=== PATIENT | female | born 1955 | race Caucasian/White ===

== ENCOUNTER 2022-10-16 07:40 | Inpatient (IN) ==
[2022-10-16] MEDS ORDERED: ACETAMINOPHEN 1,000 MG/100 ML VIAL IV STA (08:44)
[2022-10-16] MEDS ORDERED: MoRPHine SULFATE 2 MG/ML CARP IV STA (08:44)
[2022-10-16] MEDS ORDERED: SODIUM CHLORIDE 0.9% 1000ML 1,000 ML IV STA (08:44)
--- NOTE | 2022-10-16 08:49 | Emergency Department Note ---
Impression & Plan RUQ abdominal pain, Acute cholecystitis, Vomiting ED Provider Note NAME: ASHLIE VASQUEZ AGE: 67 SEX: F : 1955 ARRIVES VIA: Ambulance INFORMANT: [Patient] ED PROVIDER(S): [Jose G Lim MD] CHIEF COMPLAINT: GI assessment HISTORY OF PRESENT ILLNESS: The patient is a 67-year-old female who presents to the ER with epigastric abdominal pain and vomiting. She had an episode 2 days ago that resolved spontaneously. She felt fine yesterday. Last night, she had a lot to eat at the [employer]. About 4-1/2 hours ago she woke up with back pain and epigastric pain and began vomiting. This time, the symptoms are not resolving spontaneously. In route to the hospital, she was given IV Toradol, IV morphine and IV Zofran with some relief--although, she still has pain and would rate the pain as a 6/10. The pain had been an 8. The patient has no history of abdominal surgery. She does have gastritis for which she takes omeprazole. The patient had an episode similar to today's episode about a year and a half ago. She went to a local ER and was given a GI cocktail as well as Zofran, her symptoms resolved. PMHx/PSHx: See Below SOCIAL HISTORY: See Below. PHYSICAL EXAM: GENERAL: Patient is in no acute distress. HEENT: No acute trauma, normocephalic atraumatic, mucous membranes moist, no nasal congestion. NECK: No stridor, no adenopathy, no meningismus, trachea is midline. LUNGS: Clear to auscultation bilaterally, no wheeze, no rhonchi, breath sounds equal. HEART: Without murmurs gallops or rubs, regular rate and rhythm. ABDOMEN: Soft, moderately tender in the epigastrium and right upper quadrant, no distention or peritonitis. EXTREMITIES: No cyanosis or edema, full range of motion of all the joints without pain or difficulty, no signs for acute trauma. NEUROLOGIC: Oriented x 3, no acute motor or sensory deficits, no focal weakness. SKIN: No rash, no jaundice, no diaphoresis. DIFFERENTIAL DIAGNOSIS: Biliary colic, acute cholecystitis, pancreatitis, cardiac ischemia, diverticulitis, reflux or gastritis, ulcer, among others. EMERGENCY DEPARTMENT COURSE/PROCEDURES: Prior/Outside records reviewed: EMS notes. ECG per my interpretation: Indication was abdominal pain. The ECG shows a sinus bradycardia with a rate of 59. There is some baseline artifact. There is no ST elevation, no PVCs. The QTc is 439. Continuous Cardiac Monitoring per my interpretation: An order was placed for continuous cardiac monitoring. The monitor shows a rate of 62 with normal sinus rhythm. MEDICAL DECISION MAKING: There is no leukocytosis or concerning anemia. There is a normal platelet count. Potassium slightly low at 3.3. No renal failure. No concerning liver enzyme elevation. No evidence for pancreatitis. ECG shows sinus bradycardia, no ischemia. Cardiac enzyme testing x1 is not consistent with acute cardiac injury. Urinalysis does not show infection. Chest film per my review does not show mediastinal widening, free air or pneumonia. Abdominal and pelvis CT shows evidence for acute cholecystitis with a potential stone caught in the cystic duct. There was no elevation to the common bile duct. Patient had received morphine, Toradol and Zofran prior to arrival. She was given IV saline, 1 L. She received IV Zosyn as antibiotic coverage. She was given IV Zofran, IV morphine. She received IV Tylenol. The patient does feel improved but is still having discomfort in the right upper quadrant. I did speak with general surgery, patient was seen in the ED by general surgery and will be taken to the OR by Dr. Mcgowan. The patient is aware of her findings, case management has been involved. DISPOSITION: The patient's presentation and findings warrant surgical intervention. Past Med/Surg History Medical History GERD (gastroesophageal reflux disease) Hypertension Social History Smoking Status: Never smoker Preferred Language: [place] Feels Safe at Home: Yes Allergies Allergies Allergy/AdvReac Type Severity Reaction Status Date / Time No Known Allergies Allergy Unverified 10/16/22 09:29 Home Meds Home Medications Medication Instructions Recorded Confirmed cranberry 1 tab PO DAILY 10/16/22 10/16/22 multivitamin 1 tab PO DAILY 10/16/22 10/16/22 omega-3 fatty acids 1,000 mg PO DAILY 10/16/22 10/16/22 omeprazole 20 mg capsule,delayed 20 mg PO DAILY 10/16/22 10/16/22 release potassium chloride 10 mEq 10 meq PO BID 10/16/22 10/16/22 tablet,extended release(part/cryst) triamterene 37.5 1 cap PO DAILY 10/16/22 10/16/22 mg-hydrochlorothiazide 25 mg capsule Results & Data (ED) Vital Signs Vital Signs - 24 hr 10/16/22 07:47 10/16/22 07:40 10/16/22 08:44 Temperature 36.7 C Temperature Source Oral Pulse Rate 62 60 62 Pulse Rate [Apical] Pulse Rate [Left Finger] Pulse Rate from SpO2 Sensor Pulse Rhythm Regular Pulse Rhythm [Apical] Pulse Rhythm [Left Finger] Pulse Strength [Apical] Pulse Strength [Left Finger] Respiratory Rate 20 20 Respiratory Effort / Characteristics Non-Labored Respiratory Depth Normal Respiratory Pattern Regular Blood Pressure 183/82 H Blood Pressure [Right Arm] Blood Pressure Mean 115 Blood Pressure Mean [Right Arm] Blood Pressure Position [Right Arm] Pulse Oximetry 98 98 Oxygen Delivery Method Room Air Room Air Oxygen Flow Rate Sepsis Recent Fever Within 48 Hours No Sepsis New/Unexplained Change in Mental Status N/A Sepsis Action Taken by Nursing No Action Required 10/16/22 07:48 10/16/22 08:00 10/16/22 09:00 Temperature Temperature Source Pulse Rate 66 66 65 Pulse Rate [Apical] Pulse Rate [Left Finger] Pulse Rate from SpO2 Sensor 63 66 64 Pulse Rhythm Pulse Rhythm [Apical] Pulse Rhythm [Left Finger] Pulse Strength [Apical] Pulse Strength [Left Finger] Respiratory Rate 19 14 20 Respiratory Effort / Characteristics Respiratory Depth Respiratory Pattern Blood Pressure 183/82 H 190/96 H 189/106 H Blood Pressure [Right Arm] Blood Pressure Mean 115 127 133 Blood Pressure Mean [Right Arm] Blood Pressure Position [Right Arm] Pulse Oximetry 96 94 99 Oxygen Delivery Method Oxygen Flow Rate Sepsis Recent Fever Within 48 Hours Sepsis New/Unexplained Change in Mental Status Sepsis Action Taken by Nursing 10/16/22 10:00 10/16/22 11:00 10/16/22 12:27 Temperature Temperature Source Pulse Rate 67 75 68 Pulse Rate [Apical] Pulse Rate [Left Finger] Pulse Rate from SpO2 Sensor 69 Pulse Rhythm Pulse Rhythm [Apical] Pulse Rhythm [Left Finger] Pulse Strength [Apical] Pulse Strength [Left Finger] Respiratory Rate 14 20 Respiratory Effort / Characteristics Respiratory Depth Respiratory Pattern Blood Pressure 182/96 H 174/117 H Blood Pressure [Right Arm] Blood Pressure Mean 124 136 Blood Pressure Mean [Right Arm] Blood Pressure Position [Right Arm] Pulse Oximetry 100 96 Oxygen Delivery Method Room Air Oxygen Flow Rate Sepsis Recent Fever Within 48 Hours Sepsis New/Unexplained Change in Mental Status Sepsis Action Taken by Nursing 10/16/22 12:00 10/16/22 12:00 10/16/22 13:05 Temperature Temperature Source Pulse Rate 65 Pulse Rate [Apical] Pulse Rate [Left Finger] Pulse Rate from SpO2 Sensor 65 Pulse Rhythm Pulse Rhythm [Apical] Pulse Rhythm [Left Finger] Pulse Strength [Apical] Pulse Strength [Left Finger] Respiratory Rate 18 Respiratory Effort / Characteristics Respiratory Depth Respiratory Pattern Blood Pressure 163/87 H Blood Pressure [Right Arm] Blood Pressure Mean 127 Blood Pressure Mean [Right Arm] Blood Pressure Position [Right Arm] Pulse Oximetry 93 Oxygen Delivery Method Room Air Oxygen Flow Rate Sepsis Recent Fever Within 48 Hours Sepsis New/Unexplained Change in Mental Status Sepsis Action Taken by Nursing 10/16/22 13:06 10/16/22 14:35 10/16/22 14:45 Temperature 36.8 C 36.2 C L Temperature Source Oral Temporal Artery Scan Pulse Rate Pulse Rate [Apical] 75 70 Pulse Rate [Left Finger] 70 Pulse Rate from SpO2 Sensor Pulse Rhythm Pulse Rhythm [Apical] Regular Regular Pulse Rhythm [Left Finger] Regular Pulse Strength [Apical] Normal Normal Pulse Strength [Left Finger] Normal Respiratory Rate 18 16 18 Respiratory Effort / Characteristics Non-Labored Spontaneous Non-Labored Spontaneous Non-Labored Spontaneous Respiratory Depth Normal Normal Normal Respiratory Pattern Regular Regular Regular Blood Pressure Blood Pressure [Right Arm] 192/93 H 159/62 H 158/76 H Blood Pressure Mean Blood Pressure Mean [Right Arm] 126 94 103 Blood Pressure Position [Right Arm] Sitting Semi-fowlers Semi-fowlers Pulse Oximetry 96 95 98 Oxygen Delivery Method Room Air Oxymask Oxymask Oxygen Flow Rate 6 4 Sepsis Recent Fever Within 48 Hours Sepsis New/Unexplained Change in Mental Status Sepsis Action Taken by Nursing 10/16/22 14:55 10/16/22 15:05 Temperature Temperature Source Pulse Rate Pulse Rate [Apical] 64 68 Pulse Rate [Left Finger] Pulse Rate from SpO2 Sensor Pulse Rhythm Pulse Rhythm [Apical] Regular Regular Pulse Rhythm [Left Finger] Pulse Strength [Apical] Normal Normal Pulse Strength [Left Finger] Respiratory Rate 13 20 Respiratory Effort / Characteristics Non-Labored Spontaneous Non-Labored Spontaneous Respiratory Depth Normal Normal Respiratory Pattern Regular Regular Blood Pressure Blood Pressure [Right Arm] 160/79 H 142/70 H Blood Pressure Mean Blood Pressure Mean [Right Arm] 106 94 Blood Pressure Position [Right Arm] Semi-fowlers Semi-fowlers Pulse Oximetry 97 95 Oxygen Delivery Method Oxymask Room Air Oxygen Flow Rate 4 Sepsis Recent Fever Within 48 Hours Sepsis New/Unexplained Change in Mental Status Sepsis Action Taken by Group Home Medications Current Medication List: was personally reviewed by me Laboratory Data Attestation: I reviewed the patient's lab results. 10/16/22 07:50 10/16/22 07:50 Lab Results 10/16/22 10/16/22 10/16/22 Range/Units 07:50 07:50 10:24 WBC 6.87 (4.8-10.8) K/ul RBC 4.77 (4.20-5.40) M/uL Hgb 14.2 (12.0-16.0) g/dl Hct 40.1 (37.0-47.0) % MCV 84.1 (80.0-100.0) fL MCH 29.8 (25.0-34.0) pg MCHC 35.4 (32.0-36.0) g/dL RDW Std Deviation 39.1 (36.4-46.3) fL RDW Coeff of Bryce 12.9 (11.5-14.5) % Plt Count 223 (130-400) K/uL MPV 8.4 L (9.4-12.4) fL Immature Gran % (Auto) 0.7 % Neut % (Auto) 78.8 % Lymph % (Auto) 14.8 % [place] % (Auto) 4.8 % Eos % (Auto) 0.6 % Baso % (Auto) 0.3 % Neut # (Auto) 5.41 (1.40-6.50) K/uL Lymph # (Auto) 1.02 L (1.20-3.40) K/uL [place] # (Auto) 0.33 (0.11-0.59) K/uL Eos # (Auto) 0.04 (0.00-0.50) K/uL Baso # (Auto) 0.02 (0.00-0.20) K/uL Immature Gran # (Auto) 0.05 (0.01-0.20) K/uL Sodium 140 (136-145) mmol/L Potassium 3.3 L (3.5-5.1) mmol/L Chloride 105 (98-107) mmol/L Carbon Dioxide 28 (21-32) mmol/L Anion Gap 7 (3-11) BUN 21 (6-23) mg/dl Creatinine 0.72 (0.6-1.2) mg/dl Est Cr Clr Drug Dosing 74.2 ml/min Est GFR ( Amer) 100.4 ml/min Est GFR (Non-Af Amer) 86.7 ml/min BUN/Creatinine Ratio 29.2 H (10-20) Glucose 162 H (70-99(Fasting)) mg/dl Calcium 8.9 (8.6-10.3) mg/dl Total Bilirubin 0.5 (0.2-1.0) mg/dl AST 15 (13-39) U/L ALT 11 (7-52) U/L Alkaline Phosphatase 62 (34-104) U/L Troponin I High Sens 4.8 (0-14) pg/ml Total Protein 6.4 (6.0-8.3) gm/dl Albumin 4.3 (3.4-5.0) gm/dl Globulin 2.1 L (2.5-4.0) gm/dl Albumin/Globulin Ratio 2.0 (0.9-2) Lipase 29 (11-82) U/L Urine Color Yellow Urine Appearance Clear (Clear) Urine pH 8.0 H (4.5-7.5) Ur Specific [place] 1.015 (1.000-1.030) Urine Protein Negative (Negative) Urine Glucose (UA) Trace H (Negative) Urine Ketones Negative (Negative) Urine Blood Negative (Negative) Urine Nitrite Negative (Negative) Urine Bilirubin Negative (Negative) Urine Urobilinogen Negative (Negative) Ur Leukocyte Esterase Negative (Negative) Administered Medications Discontinued Medications Bupivacaine HCl (Bupivacaine 0.5 % 5 Mg/1 Ml Mpf 30ml Vial) Confirm Administered Dose 30 ml .ROUTE .STK-MED ONE Stop: 10/16/22 12:41 Last Admin: 10/16/22 14:14 Dose: 10 ml Documented By: [facility] Sodium Chloride (Nss 1000ml) 1,000 mls @ 999 mls/hr IV .Q1H1M STA Stop: 10/16/22 09:44 Last Infusion: 10/16/22 10:10 Dose: 0 mls/hr Documented By: Admin: 10/16/22 09:00 Dose: 999 mls/hr Documented By: FAISAL Acetaminophen (Ofirmev) 1,000 mg in 100 mls @ 400 mls/hr IV NOW STA Stop: 10/16/22 08:58 Last Infusion: 10/16/22 09:20 Dose: 0 mls/hr Documented By: Admin: 10/16/22 09:01 Dose: 400 mls/hr Documented By: FAISAL Piperacillin Sod/Tazobactam Sod (Zosyn) 4.5 gm in 120 mls @ 240 mls/hr IV NOW ONE Stop: 10/16/22 11:26 Last Infusion: 10/16/22 12:01 Dose: 0 mls/hr Documented By: Admin: 10/16/22 11:20 Dose: 240 mls/hr Documented By: CLIF Acetaminophen (Ofirmev) 1,000 mg in 100 mls @ 400 mls/hr IV NOW ONE Stop: 10/16/22 14:29 Last Admin: 10/16/22 15:00 Dose: 400 mls/hr Documented By: CORKY Ioversol (Optiray 320 100ml) 90 ml IV ONCE ONE Stop: 10/16/22 10:16 Last Admin: 10/16/22 10:15 Dose: 90 ml Documented By: PRASANTH Morphine Sulfate (Morphine Sulfate 2 Mg/Ml Carp) 2 mg IV NOW STA Stop: 10/16/22 08:45 Last Admin: 10/16/22 09:01 Dose: 2 mg Documented By: FAISAL Morphine Sulfate (Morphine Sulfate 4 Mg/Ml 1 Ml Carp\Vial) 4 mg IV NOW STA Stop: 10/16/22 11:01 Last Admin: 10/16/22 11:19 Dose: 4 mg Documented By: CLIF Imaging Data Radiologist's Impression: Abdomen/Pelvis CT 10/16/22 08:[address] WITH IV CONTRAST CT DOSE: 1285.71 mGy.cm HISTORY: upper abd pain TECHNIQUE: Multiaxial CT images of the abdomen and pelvis were performed following the use of intravenous contrast. A dose lowering technique was utilized adhering to the principles of ALARA. COMPARISON STUDY: None. FINDINGS: Mild dependent changes seen within the lungs posteriorly. There is a punctate calcified granuloma within the right lower lobe. No pneumoperitoneum. No pneumatosis. No acute fractures identified. There are small fat-containing umbilical hernia. There are 2 similar-appearing hypodense lesions within the right hepatic lobe with the largest at the right hepatic dome measuring 4 mm. Th clemente are indeterminate but favor small hemangiomas. The main portal vein is patent. The pancreas, spleen, and adrenal glands unremarkable. There is a punctate stone within the lower pole the left kidney. No ureteral stones. No hydronephrosis. No retroperitoneal lymphadenopathy. There is a normal caliber abdominal aorta with mild calcified plaque. The gallbladder is mildly distended. There are few punctate gallstones. There is mild pericholecystic inflammatory change. Possible punctate stone in the cystic duct best seen on image 95. Therefore, these findings are highly suspicious for an acute cholecystitis. Normal caliber common bile duct. Normal bladder. Prior hysterectomy. No pelvic free fluid or pelvic lymphadenopathy. No bowel wall thickening or obstruction. Normal appendix. IMPRESSION: 1. Mildly distended gallbladder with mild pericholecystic inflammatory change and a few punctate gallstones. Possible punctate stone at the cystic duct as described above. Therefore, these findings are highly suspicious for an acute cholecystitis. Surgical consultation recommended. 2. Left-sided nephrolithiasis. No ureteral stones. No hydronephrosis. 3. No bowel wall thickening or obstruction. 4. Normal appendix. 5. Additional findings as described above. ACT 112: Negative or not required by law. Electronically signed by: Nic Gray M.D. 10/16/2022 10:42 AM Chest X-Ray 10/16/22 08:44 XR chest 1V portable CLINICAL HISTORY: Abdominal pain. Vomiting. COMPARISON STUDY: No previous studies for comparison. FINDINGS: Lung volumes are normal. Lungs are clear. There is no pneumothorax or pleural effusion. Mild cardiomegaly. Mediastinal contours are normal. There is no evidence for pulmonary edema. IMPRESSION: No acute cardiopulmonary findings. ACT 112: Negative or not required by law. Electronically signed by: Jarrett Kay M.D. 10/16/2022 9:12 AM Discharge Plan Visit Data Chief Complaint: GI Assessment Stated Complaint: ABDOMINAL PAIN ED Provider: Jose G Lim Discharge Problem: RUQ abdominal pain, Acute cholecystitis, Vomiting Patient Disposition: Admitted As Inpatient Condition: Fair Discharge Instructions Interventions: ED Discharge Assessment Last Done: 10/16/22 13:05
[2022-10-16 09:04] LABS: Basophils # (auto) 0.02 K/uL (0.00-0.20); Basophils % (auto) 0.3 %; Eosinophils # (auto) 0.04 K/uL (0.00-0.50); Eosinophils % (auto) 0.6 %; Hematocrit (blood only) 40.1 % (37.0-47.0); Hemoglobin 14.2 g/dl (12.0-16.0); Immature Granulocytes # (auto) 0.05 K/uL (0.01-0.20); Immature Granulocytes % (auto) 0.7 %; Lymphocytes # (auto) 1.02 K/uL (1.20-3.40); Lymphocytes % (auto) 14.8 %; Mean Corpuscular Hemoglobin 29.8 pg (25.0-34.0); Mean Corpuscular Hgb Conc 35.4 g/dL (32.0-36.0); Mean Corpuscular Volume 84.1 fL (80.0-100.0); Mean Platelet Volume 8.4 fL (9.4-12.4); Monocytes # (auto) 0.33 K/uL (0.11-0.59); Monocytes % (auto) 4.8 %; Neutrophils # (auto) 5.41 K/uL (1.40-6.50); Neutrophils % (auto) 78.8 %; Platelet Count 223 K/uL (130-400); RDW Coefficient of Variation 12.9 % (11.5-14.5); RDW Standard Deviation 39.1 fL (36.4-46.3); Red Blood Count 4.77 M/uL (4.20-5.40); White Blood Count 6.87 K/ul (4.8-10.8)
--- NOTE | 2022-10-16 09:14 | XRay Report ---
XR chest 1V portable CLINICAL HISTORY: Abdominal pain. Vomiting. COMPARISON STUDY: No previous studies for comparison. FINDINGS: Lung volumes are normal. Lungs are clear. There is no pneumothorax or pleural effusion. Mil d cardiomegaly. Mediastinal contours are normal. There is no evidence for pulmonary edema. IMPRESSION: No acute cardiopulmonary findings. ACT 112: Negative or not required by law. Electronically signed by: Jarrett Kay M.D. 10/16/2022 9:12 AM
[2022-10-16 09:20] LABS: Albumin Level 4.3 gm/dl (3.4-5.0); Bilirubin,Total 0.5 mg/dl (0.2-1.0); Calcium 8.9 mg/dl (8.6-10.3); Potassium 3.3 mmol/L (3.5-5.1)
[2022-10-16 09:26] LABS: BUN Creatinine Ratio 29.2 (10-20); Creatinine Clr Calc Pharmacy 74.2 ml/min; Est GFR (African American) 100.4 ml/min; Est GFR (Non-African American) 86.7 ml/min; Globulin 2.1 gm/dl (2.5-4.0); Total Protein 6.4 gm/dl (6.0-8.3)
[2022-10-16 09:46] LABS: Troponin I High Sensitivity 4.8 pg/ml (0-14)
[2022-10-16] MEDS ORDERED: OPTIRAY 320 100ml IV ONE (10:15)
--- NOTE | 2022-10-16 10:44 | CT Scan Report ---
ABDOMEN AND PELVIS CT WITH IV CONTRAST CT DOSE: 1285.71 mGy.cm HISTORY: upper abd pain TECHNIQUE: Multiaxial CT images of the abdomen and pelvis were performed following the use of intrave nous contrast. A dose lowering technique was utilized adhering to the principles of ALARA. COMPARISON STUDY: None. FINDINGS: Mild dependent changes seen within the lungs posteriorly. There is a punctate calcified gra nuloma within the right lower lobe. No pneumoperitoneum. No pneumatosis. No acute fractures identifie d. There are small fat-containing umbilical hernia. There are 2 similar-appearing hypodense lesions w ithin the right hepatic lobe with the largest at the right hepatic dome measuring 4 mm. These are ind eterminate but favor small hemangiomas. The main portal vein is patent. The pancreas, spleen, and adr enal glands unremarkable. There is a punctate stone within the lower pole the left kidney. No uretera l stones. No hydronephrosis. No retroperitoneal lymphadenopathy. There is a normal caliber abdominal aorta with mild calcified plaque. The gallbladder is mildly distended. There are few punctate gallsto anibal. There is mild pericholecystic inflammatory change. Possible punctate stone in the cystic duct be st seen on image 95. Therefore, these findings are highly suspicious for an acute cholecystitis. Norm al caliber common bile duct. Normal bladder. Prior hysterectomy. No pelvic free fluid or pelvic lymph adenopathy. No bowel wall thickening or obstruction. Normal appendix. IMPRESSION: 1. Mildly distended gallbladder with mild pericholecystic inflammatory change and a few punctate gall stones. Possible punctate stone at the cystic duct as described above. Therefore, these findings are highly suspicious for an acute cholecystitis. Surgical consultation recommended. 2. Left-sided nephrolithiasis. No ureteral stones. No hydronephrosis. 3. No bowel wall thickening or obstruction. 4. Normal appendix. 5. Additional findings as described above. ACT 112: Negative or not required by law. Electronically signed by: Nic Gray M.D. 10/16/2022 10:42 AM
[2022-10-16] MEDS ORDERED: PIPERACILLIN/TAZOBACTAM 4.5 GM/120 ML BAG IV ONE (10:57)
[2022-10-16] MEDS ORDERED: MoRPHine SULFATE 4 MG/ML 1 ML CARP\\VIAL IV STA (11:00)
[2022-10-16 11:14] LABS: Appearance Urine Clear (Clear); Bilirubin Urine Negative (Negative); Blood Urine Negative (Negative); Color Urine Yellow; Glucose Urine UA Trace (Negative); Ketones Urine Negative (Negative); Leukocyte Esterase Urine Negative (Negative); Nitrite Urine Negative (Negative); Protein Urine Negative (Negative); Specific Gravity Urine 1.015 (1.000-1.030); Urobilinogen Urine Negative (Negative)
--- NOTE | 2022-10-16 12:32 | History & Physical Report ---
Date of Service October 16, 2022 Assessment & Plan (1) Acute cholecystitis: Plan: This is a 67yF with a PMH of GERD, HTN who presents to the [facility] ED on 10/16/22 with complaints of abdominal pain, nausea/vomiting that started this AM. In the ER she underwent a CT a/p that revealed a mildly distended gallbladder with mild pericholecystic inflammatory change and a few punctate gallstones. Possible punctate stone at the cystic duct as described above. These findings are highly suspicious for an acute cholecystitis. Patients vitals show hypertension, otherwise HR normal and she is afebrile. Labs show WBC 6.8, Hbg 14, K 3.3, LFts are within normal limits. On exam patient's abdomen tender to palpation in the epigastric and RUQ regions. Also complaining of back pain. Exam/history/imaging consistent with acute cholecystitis. We will plan on proceeding with laparosco pic cholecystectomy today. Dr. Mcogwan to obtain consent. NPO with IVF and IV abx in the interim. History of Present Illness Primary Care Provider: Akhil Girard MD This is a 67yF with a PMH of GERD, HTN who presents to the [facility] ED on 10/16/22 with complaints of abdominal pain, nausea/vomiting that started this AM. She has been camping at the [employer] this week. 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 Yesterday she felt fine and ate eggs/doyle for breakfast, scotts pulled pork sandwich for lunch, and hamburger and mozzarella cheese cubes for dinner. She went to sleep, but then woke up this AM around 4am with severe pain in her upper abdomen radiating into her back, rating it an 8-9/10 in severity. This was associated with multiple bouts of nausea/vomiting. She called her to come pick her up, however the pain became so unbearable that she ended up calling 911 and coming in by EMS. In the ER she underwent a CT a/p that revealed a mildly distended gallbladder with mild pericholecystic inflammatory change and a few punctate gallstones. Possible punctate stone at the cystic duct as described above. These findings are highly suspicious for an acute cholecystitis. The patient denies any fevers/chills, CP/SOB, or changes in bowel habits. + sweats and reflux. No prior abdominal surgical history. History of vaginal hysterectomy. 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 Allergies Allergy/AdvReac Type Severity Reaction Status Date / Time No Known Allergies Allergy Unverified 10/16/22 09:29 Home Medications Medication Instructions Recorded Confirmed Type cranberry 1 tab PO DAILY 10/16/22 10/16/22 History multivitamin 1 tab PO DAILY 10/16/22 10/16/22 History omega-3 fatty acids 1,000 mg PO DAILY 10/16/22 10/16/22 History omeprazole 20 mg capsule,delayed 20 mg PO DAILY 10/16/22 10/16/22 History release potassium chloride 10 mEq 10 meq PO BID 10/16/22 10/16/22 History tablet,extended release(part/cryst) triamterene 37.5 1 cap PO DAILY 10/16/22 10/16/22 History mg-hydrochlorothiazide 25 mg capsule Past Med/Surg History Social History Smoking Status: Never smoker Preferred Language: Albanian Feels Safe at Home: Yes Review of Systems Constitutional: no fever and no chills Respiratory: no dyspnea Cardiovascular: no chest pain Gastrointestinal: + abdominal pain, + bloating, + nausea and + vomiting; no change in bowel habits Musculoskeletal: + back pain Physical Exam Physical Exam: awake/alert Respiratory: normal respiratory effort; no respiratory distress Cardiovascular: Rate/Rhythm: regular rate Gastrointestinal (Abdomen): Inspection/Auscultation: + abdomen distended Percussion/Palpation: + abdomen tender (ttp in epigastric and RUQ) and abdomen soft Results & Data Results & Data Vital Signs (Past 12 Hours) Vital Signs Temp Pulse Resp BP Pulse Ox O2 Del Method 10/16/22 12:27 68 10/16/22 11:00 75 20 174/117 H 96 Room Air 10/16/22 10:00 67 14 182/96 H 100 10/16/22 09:00 65 20 189/106 H 99 10/16/22 08:00 66 14 190/96 H 94 10/16/22 07:48 66 19 183/82 H 96 10/16/22 08:44 62 20 98 Room Air 10/16/22 07:40 36.7 C 60 20 183/82 H 98 Room Air 10/16/22 07:47 62 Diagnostic Findings ABDOMEN AND PELVIS CT WITH IV CONTRAST CT DOSE: 1285.71 mGy.cm HISTORY: upper abd pain TECHNIQUE: Multiaxial CT images of the abdomen and pelvis were performed following the use of intravenous contrast. A dose lowering technique was utilized adhering to the principles of ALARA. COMPARISON STUDY: None. FINDINGS: Mild dependent changes seen within the lungs posteriorly. There is a punctate calcified granuloma within the right lower lobe. No pneumoperitoneum. No pneumatosis. No acute fractures identified. There are small fat-containing umbilical hernia. There are 2 similar-appearing hypodense lesions within the right hepatic lobe with the largest at the right hepatic dome measuring 4 mm. These are indeterminate but favor small hemangiomas. The main portal vein is patent. The pancreas, spleen, and adrenal glands unremarkable. There is a punctate stone within the lower pole the left kidney. No ureteral stones. No hydronephrosis. No retroperitoneal lymphadenopathy. There is a normal caliber abdominal aorta with mild calcified plaque. The gallbladder is mildly distended. There are few punctate gallstones. There is mild pericholecystic inflammatory change. Possible punctate stone in the cystic duct best seen on image 95. Therefore, these findings are highly suspicious for an acute cholecystitis. Normal caliber common bile duct. Normal bladder. Prior hysterectomy. No pelvic free fluid or pelvic lymphadenopathy. No bowel wall thickening or obstruction. Normal appendix. IMPRESSION: 1. Mildly distended gallbladder with mild pericholecystic inflammatory change and a few punctate gallstones. Possible punctate stone at the cystic duct as described above. Therefore, these findings are highly suspicious for an acute cholecystitis. Surgical consultation recommended. 2. Left-sided nephrolithiasis. No ureteral stones. No hydronephrosis. 3. No bowel wall thickening or obstruction. 4. Normal appendix. 5. Additional findings as described above. ACT 112: Negative or not required by law. Electronically signed by: Nic Gray M.D. 10/16/2022 10:42 AM Supervising Physician Co-Signing Physician Notes Dr. Scott did see the patient the emergency room Her symptoms are relatively classic for biliary colic with radiation of the pain to the back Her CT scan shows a very dilated gallbladder with thickening consistent with acute cholecystitis also multiple gallstones Patient is for laparoscopic cholecystectomy possible open operation We will proceed as soon as we can PG Care Time/CCT Total # of Minutes Spent Total Time Spent with Patient: Total time spent is greater than 50% in coordination of care (as documented) at patient's floor/unit and/or counseling patient: Coding Level of Care Code 55704 INT INP/OBS CARE 2MIN Diagnoses Acute cholecystitis K81.0
[2022-10-16] MEDS ORDERED: BUPIVACAINE 0.5 % 5 MG/1 ML MPF 30ML VIAL ONE (12:40)
[2022-10-16] MEDS ORDERED: ROCURONIUM BROMIDE 10 MG/ML 5 ML VIAL IV ONE (12:52)
[2022-10-16] MEDS ORDERED: PROPOFOL IV EMULSION 10 MG/ML 20 ML VIAL IV ONE (12:52)
[2022-10-16] MEDS ORDERED: LIDOCAINE 2% 2 ML VIAL/AMP(20MG/ML) INFIL ONE (12:52)
[2022-10-16] MEDS ORDERED: MIDAZOLAM HCL 1 MG/ML 2ML VIAL ONE (12:52)
[2022-10-16] MEDS ORDERED: fentaNYL citrate PF 100 MCG/2 ML VIAL ONE ×2 (12:53→13:51)
[2022-10-16] MEDS ORDERED: ONDANSETRON INJ 2 MG/ML 2 ML VIAL ONE (13:41)
[2022-10-16] MEDS ORDERED: DEXAMETHASONE SOD INJ 4 MG/ML VIAL ONE (13:41)
[2022-10-16] MEDS ORDERED: fentaNYL citrate PF 100 MCG/2 ML VIAL IV PRN (14:01)
[2022-10-16] MEDS ORDERED: ePHEDrine sulfate 50 MG/ML AMP IV PRN (14:01)
[2022-10-16] MEDS ORDERED: ONDANSETRON INJ 2 MG/ML 2 ML VIAL IV PRN ×2 (14:01→15:58)
[2022-10-16] MEDS ORDERED: PROMETHAZINE HCL 6.25 MG in SODIUM CHLORIDE 0.9% 50 ML IV PRN (14:01)
[2022-10-16] MEDS ORDERED: ATROPINE SULFATE 0.1 MG/ML 10ML SYR IV PRN (14:01)
--- NOTE | 2022-10-16 14:01 | Anesthesiology Consultation ---
Date of Service October 16, 2022 Assessment & Plan Chart Review Chart Review: Acceptable Risk for Surgery and Patient NOT seen in Pre Admission Testing Consults Requested none ASA ASA2 Proposed Anesthesia Anesthesia Type: General Risk / Benefits Reviewed With: PT / POA / Parent / Guardian, Accepts Plan and Informed Consent Obtained History Surgery Operation Date: 10/16/22 13:00 Proposed Procedures p Laparoscopic Cholecystectomy - Obed Mcgowan MD, FACS Height/Weight Height: 5 ft 1 in Weight: 83.3 kg Allergies Allergy/AdvReac Type Severity Reaction Status Date / Time No Known Allergies Allergy Unverified 10/16/22 09:29 Medications Home Medications Medication Instructions Recorded Confirmed Last Taken cranberry 1 tab PO DAILY 10/16/22 10/16/22 10/15/22 multivitamin 1 tab PO DAILY 10/16/22 10/16/22 10/15/22 omega-3 fatty acids 1,000 mg PO DAILY 10/16/22 10/16/22 10/15/22 omeprazole 20 mg capsule,delayed 20 mg PO DAILY 10/16/22 10/16/22 10/15/22 release potassium chloride 10 mEq 10 meq PO BID 10/16/22 10/16/22 10/15/22 tablet,extended release(part/cryst) triamterene 37.5 1 cap PO DAILY 10/16/22 10/16/22 10/15/22 mg-hydrochlorothiazide 25 mg capsule NPO Date Last Intake of Fluids: 10/16/22 Time Last Intake of Fluids: 10:00 Last Intake of Fluids Comment: patient had a mint at 1000 today Date Last Intake of Solids: 10/15/22 Time Last Intake of Solids: 22:00 Exercise / Class Metabolic Activity II 4-5 Yardwork/Stairs/Walk up hill Past Anesthesia History No Hx of Anesthesia Complications and No Family Hx of Anesthesia Complications History of PONV No Hx of PONV and No Hx of Motion Sickness Social History Smoking Status: Never smoker Physical Exam Vital Signs Last Vital Signs Temp 36.8 C 10/16/22 13:06 Pulse 70 10/16/22 13:06 Resp 18 10/16/22 13:06 BP 192/93 H 10/16/22 13:06 Pulse Ox 96 10/16/22 13:06 O2 Del Method Room Air 10/16/22 13:06 ENMT Mouth: no dentition abnormality Thyromental Distance: > or= 3.5 Finger Breadths Mallampati Class: II Neck normal visual inspection Respiratory normal respiratory effort Auscultation: lungs clear to auscultation bilaterally Cardiovascular Rate/Rhythm: regular rate and regular rhythm Psychiatric Orientation: alert Testing Laboratory Results 10/16/22 07:50 10/16/22 07:50 Urine Color Yellow 10/16/22 10:24 Urine Appearance Clear (Clear) 10/16/22 10:24 Urine pH 8.0 (4.5-7.5) H 10/16/22 10:24 Ur Specific [place] 1.015 (1.000-1.030) 10/16/22 10:24 Urine Protein Negative (Negative) 10/16/22 10:24 Urine Glucose (UA) Trace (Negative) H 10/16/22 10:24 Urine Ketones Negative (Negative) 10/16/22 10:24 Urine Nitrite Negative (Negative) 10/16/22 10:24 Ur Leukocyte Esterase Negative (Negative) 10/16/22 10:24
[2022-10-16] MEDS ORDERED: KETOROLAC 30 MG/ML VIAL ONE (14:09)
[2022-10-16] MEDS ORDERED: ACETAMINOPHEN 1,000 MG/100 ML VIAL IV ONE (14:15)
--- NOTE | 2022-10-16 14:15 | Post Operative Brief Note ---
PG Immediate Post Op with CF Date of Surgery October 16, 2022 Pre & Post Diagnosis Operation Date: 10/16/22 13:00 Pre-Op Diagnosis: ABDOMINAL PAIN, acute cholecystitis Post-Op Diagnosis: ABDOMINAL PAIN, acute and chronic cholecystitis with adhesions I identified the patient and participated in the time-out.: Yes Procedure Operation Date: 10/16/22 13:00 Actual Procedures p Laparoscopic Cholecystectomy(Not Applicable) - Obed Mcgowan MD, FACS Lysis of adhesions Surgeon Obed Mcgowan MD, FACS Assistant Athletic Trainer c o'brennen Estimated Blood Loss 10 Findings Consistent with Post-Op Diagnosis Severe acute and chronic inflammation with adhesions Specimens Specimen Description: A. Gallbladder and contents
[2022-10-16] MEDS ORDERED: SUGAMMADEX SODIUM 200 MG/2 ML VIAL IV ONE (14:16)
--- NOTE | 2022-10-16 14:54 | Hospitalist Consultation ---
Date of Consultation October 16, 2022 Assessment & Plan (1) Acute cholecystitis: -Pain management, perioperative abx, DVT PPX, and IV fluids per the primary team -Patient is doing well post-op and currently stable -Was hypertensive in the OR and was given 3mg lopressor and 10 mg labetalol -We will continue to follow, thank you for allowing us to participate in the care of this patient (2) Hypertension: -Currently stable after receiving 3 mg lopressor and 10 mg labetalol in the OR -Did not have her dose of triamterene-HCTZ today, will give now -Continue to monitor BP (3) Hypokalemia: -Potassium noted to be 3.3 in the ED -Likely due to chronic diuretic use -Does take BID KCL at home -Will give 2 bags of IV KCL now -Continue home BID KCL (4) GERD (gastroesophageal reflux disease): -Continue PPI Plan The patient was discussed with Dr. Eastman at the time of the consult Supervising Physician Co-Signing Physician Notes I personally saw and examined the patient. I verified all benoit points and agree with Loc Abarca PA-C with the following exceptions and/or additions: 67 year old female presents to the ER with RUQ abdominal pain. Diagnosed with acute cholecystitis s/p cholecystectomy. O/E HS RRR, Chest CTAB, Abdo right sided mild tenderness, no guarding or rebound tenderness A/P Acute cholecystitis - s/p cholecystectomy and doing well. Recommend at least 24 hours of antibiotics if uncomplicated up to 5 days if cholecystectomy and gallbladder more complicated HTN - continue routine medications History of Present Illness Reason for Consultation: Post-op medical management, post-operative hypertension Requesting Physician: Obed Mcgowan MD, FACS Attending Physician: Dr. Cyril Eastman History of Present Illness Serene is a 67 year old female with a PMH significant for HTN and GERD who initially presented to the [facility] ED on 10/16 with complaints of epigastric abdominal pain and vomiting. She was noted to be hypertensive at 192/93 but otherwise stable. Labs were significant for a potassium of 3.3. Chest xray was read as "No acute cardiopulmonary findings.". CT of the abd/pelvis w/IV con was read as "1. Mildly distended gallbladder with mild pericholecystic inflammatory change and a few punctate gallstones. Possible punctate stone at the cystic duct as described above. Therefore, these findings are highly suspicious for an acute cholecystitis. Surgical consultation recommended. 2. Left-sided nephrolithiasis. No ureteral stones. No hydronephrosis. 3. No bowel wall thickening or obstruction. 4. Normal appendix. 5. Additional findings as described above.". She was evaluated by General Surgery who took her to the OR. She is now S/P Laparoscopic Cholecystectomy with Dr. Mcgowan. The patient was initially hypertensive at 192/93 post-op, but is now stable. Per the operative report, EBL was listed as 10 cc and there were no listed intraoperative complications. At the time of the exam the patient was lying in bed in no acute distress. She is feeling well post-op and currently is without complaints. She states that she started to develop epigastric abdominal pain and non-bloody emesis this am. She did not take any of her medications this am prior to ED arrival. She is on triamterene-HCTZ for Meniere's Disease. Please refer to Dr. Eastman's attestation for any changes to the treatment plan Allergies Allergy/AdvReac Type Severity Reaction Status Date / Time No Known Allergies Allergy Unverified 10/16/22 09:29 Home Medications Medication Instructions Recorded Confirmed Type cranberry 1 tab PO DAILY 10/16/22 10/16/22 History multivitamin 1 tab PO DAILY 10/16/22 10/16/22 History omega-3 fatty acids 1,000 mg PO DAILY 10/16/22 10/16/22 History omeprazole 20 mg capsule,delayed 20 mg PO DAILY 10/16/22 10/16/22 History release potassium chloride 10 mEq 10 meq PO BID 10/16/22 10/16/22 History tablet,extended release(part/cryst) triamterene 37.5 1 cap PO DAILY 10/16/22 10/16/22 History mg-hydrochlorothiazide 25 mg capsule amoxicillin 875 mg-potassium 1 tab PO BID #10 tabs 10/17/22 Rx clavulanate 125 mg tablet fluconazole 150 mg tablet 150 mg PO DAILY 1 dose #2 tabs 10/17/22 Rx (Diflucan) hydrocodone 5 mg-acetaminophen 325 1 tab PO Q4H PRN pain #10 tabs 10/17/22 Rx mg tablet Patient History Medical History (Updated 10/16/22 @ 15:25 by Loc Abarca PA-C) GERD (gastroesophageal reflux disease) Hypertension Social History Smoking Status: Never smoker Hx Alcohol Use: No Hx Substance Use: No Preferred Language: Algerian Communication Ability: Effective Lard Bleacher Required: No Beliefs That Will Affect Care: None Current Living Situation: Spouse Other Information That Helps Us Care for You: No Feels Safe at Home: Yes Safety Concerns: Feels Safe At This Time Physical Exam Physical Exam: Physical Exam: General: In no acute distress, stated age, well-nourished, non-toxic marleny earing HEENT: Normocephalic, atraumatic, no scleral icterus, pupils around round, symmetrical, and reactive to light, moist mucus membranes, trachea midline, no thyromegaly Chest/Pulm: No respiratory distress, symmetrical chest expansion, clear breath sounds throughout Cardiac: RRR, no murmurs noted Abdomen: Negative for ascites and bruising, scars from laparoscopic procedure appear intact, normoactive bowel sounds, soft, non-tender to palpation throughout Musculoskeletal: Symmetrical and without signs of acute trauma, upper and lower extremities with full ROM, no atrophy, spasticity, or flaccidity Extremities: Radial, dorsalis pedis, and posterior tibial pulses are intact and symmetrical, no edema noted in the BL LE's Skin: Warm, dry, no rashes , lesions, or scars noted Neuro: Alert and oriented to person, place, month, year, and president, no focal defects, CN II-XII tested and intact, finger to nose test negative, no tremors noted Psych: No acute distress, calm and cooperative during the exam Results & Data Results & Data Vital Signs (Past 12 Hours) Vital Signs Temp Pulse Pulse Resp BP BP Pulse Ox 10/16/22 13:06 36.8 C 70 18 192/93 H 96 10/16/22 13:05 10/16/22 12:00 65 18 93 10/16/22 12:00 163/87 H 10/16/22 12:27 68 10/16/22 11:00 75 20 174/117 H 96 10/16/22 10:00 67 14 182/96 H 100 10/16/22 09:00 65 20 189/106 H 99 10/16/22 08:00 66 14 190/96 H 94 10/16/22 07:48 66 19 183/82 H 96 10/16/22 08:44 62 20 98 10/16/22 07:40 36.7 C 60 20 183/82 H 98 10/16/22 07:47 62 O2 Del Method 10/16/22 13:06 Room Air 10/16/22 13:05 Room Air 10/16/22 12:00 10/16/22 12:00 10/16/22 12:27 10/16/22 11:00 Room Air 10/16/22 10:00 10/16/22 09:00 10/16/22 08:00 10/16/22 07:48 10/16/22 08:44 Room Air 10/16/22 07:40 Room Air 10/16/22 07:47 Laboratory Results Abnormal lab results 10/16/22 10/16/22 10/16/22 Range/Units 07:50 07:50 10:24 MPV 8.4 L (9.4-12.4) fL Lymph # (Auto) 1.02 L (1.20-3.40) K/uL Potassium 3.3 L (3.5-5.1) mmol/L BUN/Creatinine Ratio 29.2 H (10-20) Glucose 162 H (70-99(Fasting)) mg/dl Globulin 2.1 L (2.5-4.0) gm/dl Urine pH 8.0 H (4.5-7.5) Urine Glucose (UA) Trace H (Negative) Diagnostic Findings Abdomen/Pelvis CT 10/16/22 08:[address] WITH IV CONTRAST CT DOSE: 1285.71 mGy.cm HISTORY: upper abd pain TECHNIQUE: Multiaxial CT images of the abdomen and pelvis were performed following the use of intravenous contrast. A dose lowering technique was utilized adhering to the principles of ALARA. COMPARISON STUDY: None. FINDINGS: Mild dependent changes seen within the lungs posteriorly. There is a punctate calcified granuloma within the right lower lobe. No pneumoperitoneum. No pneumatosis. No acute fractures identified. There are small fat-containing umbilical hernia. There are 2 similar-appearing hypodense lesions within the right hepatic lobe with the largest at the right hepatic dome measuring 4 mm. These are indeterminate but favor small hemangiomas. The main portal vein is patent. The pancreas, spleen, and adrenal glands unremarkable. There is a punctate stone within the lower pole the left kidney. No ureteral stones. No hydronephrosis. No retroperitoneal lymphadenopathy. There is a normal caliber abdominal aorta with mild calcified plaque. The gallbladder is mildly distended. There are few punctate gallstones. There is mild pericholecystic inflammatory change. Possible punctate stone in the cystic duct best seen on image 95. Therefore, these findings are highly suspicious for an acute cholecystitis. Normal caliber common bile duct. Normal bladder. Prior hysterectomy. No pelvic free fluid or pelvic lymphadenopathy. No bowel wall thickening or obstruction. Normal appendix. IMPRESSION: 1. Mildly distended gallbladder with mild pericholecystic inflammatory change and a few punctate gallstones. Possible punctate stone at the cystic duct as described above. Therefore, these findings are highly suspicious for an acute cholecystitis. Surgical consultation recommended. 2. Left-sided nephrolithiasis. No ureteral stones. No hydronephrosis. 3. No bowel wall thickening or obstruction. 4. Normal appendix. 5. Additional findings as described above. ACT 112: Negative or not required by law. Electronically signed by: Nic Gray M.D. 10/16/2022 10:42 AM Chest X-Ray 10/16/22 08:44 XR chest 1V portable CLINICAL HISTORY: Abdominal pain. Vomiting. COMPARISON STUDY: No previous studies for comparison. FINDINGS: Lung volumes are normal. Lungs are clear. There is no pneumothorax or pleural effusion. Mild cardiomegaly. Mediastinal contours are normal. There is no evidence for pulmonary edema. IMPRESSION: No acute cardiopulmonary findings. ACT 112: Negative or not required by law. Electronically signed by: Jarrett Kay M.D. 10/16/2022 9:12 AM PG Care Time/CCT Total # of Minutes Spent Total Time Spent with Patient: Total time spent is greater than 50% in coordination of care (as documented) at patient's floor/unit and/or counseling patient: [place] [address] IN/OBS CONSULT LVL 4,60M Patient Type New Medical Decision Making Straight Forward Diagnoses Acute cholecystitis K81.0 Hypertension I10 Hypokalemia E87.6 GERD (gastroesophageal reflux disease) K21.9
[2022-10-16] MEDS ORDERED: TRIAMTERENE/HCTZ 37.5/25MG CAP PO STA (15:20)
--- NOTE | 2022-10-16 15:26 | Anesthesiology Progress Note ---
Date of Service October 16, 2022 Anesthesia Post Procedure Vital Signs Vital Signs: Temp Pulse Pulse Pulse Resp BP BP 10/16/22 15:15 36.5 C 64 12 151/68 H 10/16/22 15:05 68 20 142/70 H 10/16/22 14:55 64 13 160/79 H 10/16/22 14:45 70 18 158/76 H 10/16/22 14:35 36.2 C L 75 16 159/62 H 10/16/22 13:06 36.8 C 70 18 192/93 H 10/16/22 13:05 10/16/22 12:00 65 18 10/16/22 12:00 163/87 H 10/16/22 12:27 68 10/16/22 11:00 75 20 174/117 H 10/16/22 10:00 67 14 182/96 H 10/16/22 09:00 65 20 189/106 H 10/16/22 08:00 66 14 190/96 H 10/16/22 07:48 66 19 183/82 H 10/16/22 08:44 62 20 10/16/22 07:40 36.7 C 60 20 183/82 H 10/16/22 07:47 62 Pulse Ox O2 Del Method O2 Flow Rate 10/16/22 15:15 93 Room Air 10/16/22 15:05 95 Room Air 10/16/22 14:55 97 Oxymask 4 10/16/22 14:45 98 Oxymask 4 10/16/22 14:35 95 Oxymask 6 10/16/22 13:06 96 Room Air 10/16/22 13:05 Room Air 10/16/22 12:00 93 10/16/22 12:00 10/16/22 12:27 10/16/22 11:00 96 Room Air 10/16/22 10:00 100 10/16/22 09:00 99 10/16/22 08:00 94 10/16/22 07:48 96 10/16/22 08:44 98 Room Air 10/16/22 07:40 98 Room Air 10/16/22 07:47 Transfer of Care Handoff Completed per policy Notes Mental Status: alert / awake / arousable Patient Amnestic to Procedure: Yes Nausea / Vomiting: adequately controlled Pain: adequately controlled Airway Patency, RR, SpO2: stable & adequate BP & HR: stable & adequate Hydration State: stable & adequate Anesthetic Complications: no major complications apparent
[2022-10-16] MEDS ORDERED: ACETAMINOPHEN 325 MG TAB PO PRN (15:58)
[2022-10-16] MEDS ORDERED: IBUPROFEN 600 MG TAB PO PRN (15:58)
[2022-10-16] MEDS ORDERED: HYDROCODONE/ACETAMOPHEN 5/325MG TAB PO PRN (15:58)
[2022-10-16] MEDS ORDERED: HYDROmorphone INJ 0.5 MG/0.5 ML SYR IV PRN (15:58)
[2022-10-16] MEDS: POTASSIUM CHLORIDE / WTR 10 MEQ/100 ML PLCT IV SCH ×2 (16:02→16:36)
[2022-10-16] MEDS ORDERED: SODIUM CHLORIDE 0.9% 1000ML 1,000 ML IV SCH (16:30)
--- NOTE | 2022-10-16 17:06 | Electrocardiogram Report ---
Test Reason : Blood Pressure : / mmHG Vent. Rate : 059 BPM Atrial Rate : 059 BPM P-R Int : 182 ms QRS Dur : 086 ms QT Int : 444 ms P-R-T Axes : 040 050 032 degrees QTc Int : 439 ms Sinus bradycardia Otherwise normal ECG No previous ECGs available Confirmed by Jose Juan Pedro ([id number]) on 10/16/2022 5:06:22 PM Referred By: Confirmed By:Jose Juan Pedro
[2022-10-16] MEDS: PIPERACILLIN/TAZOBACTAM 4.5 GM in DEXTROSE 5% 100 ML IV SCH (18:53)
[2022-10-16] MEDS: POTASSIUM CHLORIDE 10 MEQ TABCR PO SCH (20:24)
[2022-10-17] MEDS: PIPERACILLIN/TAZOBACTAM 4.5 GM in DEXTROSE 5% 100 ML IV SCH ×2 (00:52→08:49)
--- NOTE | 2022-10-17 08:06 | Hospitalist Progress Note ---
Date of Service October 17, 2022 Assessment & Plan (1) Acute cholecystitis: Plan: POD#1 s/p p Laparoscopic Cholecystectomy(Not Applicable) with lysis of adhesions with Obed Mcgowan MD, FACS on 10/16 Pain management/bowel regimen/DVT proph per primary service Doing well post-op, tolerating diet Declined her Zosyn this morning-- augmentin PO at d/c and will give first dose NOW given such Labs from AM pending to eval hypokalemia/replacement needs. On HCTZ for her hx meineres. Also requested copy of chart for her PCP in [place]. Order placed IF labs stable, stable for dc from medicine standpoint Of note, discussion w/ patient again to increase K food intake -- she notes she is not the best about remembering to take her potassium as it's made her nauseated in the past. Encouraged better compliance at discharge recommended. (2) Hypertension: Plan: Hypertensive post-op w/ lopressor/labetalol in OR (did not have her triamterene- HCTZ --> first dose last evening) BP 122/73 this morning and stable (3) Hypokalemia: Plan: Potassium noted to be 3.3 in the ED Likely due to chronic diuretic use Does take BID KCL at home Given 2 bags of IV KCL, continued home BID supplementation Labs from AM pending (4) GERD (gastroesophageal reflux disease): Plan: -Continue PPI Plan Thank you for allowing hospitalist service to participate in the care of Mrs Raymundo. If K stable on AM labs, stable for dc. If low, would order PO and continue usual supplementation and have follow up with PCP about further adjustments as needed. Can increase oral K food intake as well. Please call with any questions/concerns. Admission and Anticipated Discharge Date Admission Date: October 16, 2022 Supervising Physician Co-Signing Physician Notes The patient was not seen by me. The chart was reviewed. Case discussed with ALEXANDER Escobedo. Agree with assessment and plan Subjective Eval this morning, dressed and ready to go. Pain well controlled. Just had her labs drawn. Declined 4 hour Zosyn as doesn't want to stay here that long and ready for dc now. Messaged Dr Mcgowan regarding such as he sent PO abx, will give dose Augmentin NOW before discharge. She is on HCTZ for her hx meineres. Tolerating diet, some cramping, passing gas. No fever/chills, chest pain, shortness of breath. Questions.concerns addressed at this time. Review of Systems Review of Systems: All systems reviewed & are unremarkable except as noted in HPI & below Physical Exam Physical Exam: General: WD/WN female dressed and wanting to go home, at bedside HEENT: normocephalic, mmm, trachea midline Resp; CTA, no w/c/r, on room air CV: RRR, no significant m/r/g, no pitting edema GI: +BS, soft, appropriately tender around incision, no guarding/rigidity MSK/Neuro: no focal deficit, CN intact grossly Psych: AOx3, cooperative with exam Results & Data Results & Data Vital Signs (Past 12 Hours) Vital Signs Temp Pulse Resp BP Pulse Ox O2 Del Method 10/17/22 07:34 36.6 C 69 20 122/73 92 Room Air 10/17/22 03:06 36.7 C 74 16 106/57 L 94 Room Air 10/16/22 22:49 36.7 C 77 16 133/74 95 Room Air Laboratory Results 10/17/22 10/17/22 10/16/22 Range/Units 08:52 08:52 10:24 WBC 9.68 (4.8-10.8) K/ul RBC 4.41 (4.20-5.40) M/uL Hgb 13.2 (12.0-16.0) g/dl Hct 37.9 (37.0-47.0) % MCV 85.9 (80.0-100.0) fL MCH 29.9 (25.0-34.0) pg MCHC 34.8 (32.0-36.0) g/dL RDW Std Deviation 40.4 (36.4-46.3) fL RDW Coeff of Bryce 13.0 (11.5-14.5) % Plt Count 228 (130-400) K/uL MPV 8.4 L (9.4-12.4) fL Immature Gran % (Auto) 0.5 % Neut % (Auto) 84.3 % Lymph % (Auto) 10.5 % Clayton % (Auto) 4.1 % Eos % (Auto) 0.2 % Baso % (Auto) 0.4 % Neut # (Auto) 8.15 H (1.40-6.50) K/uL Lymph # (Auto) 1.02 L (1.20-3.40) K/uL Clayton # (Auto) 0.40 (0.11-0.59) K/uL Eos # (Auto) 0.02 (0.00-0.50) K/uL Baso # (Auto) 0.04 (0.00-0.20) K/uL Immature Gran # (Auto) 0.05 (0.01-0.20) K/uL Sodium Pending Potassium Pending Chloride Pending Carbon Dioxide Pending Anion Gap Pending BUN Pending Creatinine Pending Est Cr Clr Drug Dosing Pending Est GFR ( Amer) Pending Est GFR (Non-Af Amer) Pending BUN/Creatinine Ratio Pending Glucose Pending Calcium Pending Total Bilirubin Pending AST Pending ALT Pending Alkaline Phosphatase Pending Total Protein Pending Albumin Pending Globulin Pending Albumin/Globulin Ratio Pending Urine Color Yellow Urine Appearance Clear (Clear) Urine pH 8.0 H (4.5-7.5) Ur Specific [place] 1.015 (1.000-1.030) Urine Protein Negative (Negative) Urine Glucose (UA) Trace H (Negative) Urine Ketones Negative (Negative) Urine Blood Negative (Negative) Urine Nitrite Negative (Negative) Urine Bilirubin Negative (Negative) Urine Urobilinogen Negative (Negative) Ur Leukocyte Esterase Negative (Negative) Diagnostic Findings Abdomen/Pelvis CT 10/16/22 08:[address] WITH IV CONTRAST CT DOSE: 1285.71 mGy.cm HISTORY: upper abd pain TECHNIQUE: Multiaxial CT images of the abdomen and pelvis were performed following the use of intravenous contrast. A dose lowering technique was utilized adhering to the principles of ALARA. COMPARISON STUDY: None. FINDINGS: Mild dependent changes seen within the lungs posteriorly. There is a punctate calcified granuloma within the right lower lobe. No pneumoperitoneum. No pneumatosis. No acute fractures identified. There are small fat-containing umbilical hernia. There are 2 similar-appearing hypodense lesions within the right hepatic lobe with the largest at the right hepatic dome measuring 4 mm. These are indeterminate but favor small hemangiomas. The main portal vein is patent. The pancreas, spleen, and adrenal glands unremarkable. There is a punctate stone within the lower pole the left kidney. No ureteral stones. No hydronephrosis. No retroperitoneal lymphadenopathy. There is a normal caliber abdominal aorta with mild calcified plaque. The gallbladder is mildly distended. There are few punctate gallstones. There is mild pericholecystic inflammatory change. Possible punctate stone in the cystic duct best seen on image 95. Therefore, these findings are highly suspicious for an acute cholecystitis. Normal caliber common bile duct. Normal bladder. Prior hysterectomy. No pelvic free fluid or pelvic lymphadenopathy. No bowel wall thickening or obstruction. Normal appendix. IMPRESSION: 1. Mildly distended gallbladder with mild pericholecystic inflammatory change and a few punctate gallstones. Possible punctate stone at the cystic duct as described above. Therefore, these findings are highly suspicious for an acute cholecystitis. Surgical consultation recommended. 2. Left-sided nephrolithiasis. No ureteral stones. No hydronephrosis. 3. No bowel wall thickening or obstruction. 4. Normal appendix. 5. Additional findings as described above. ACT 112: Negative or not required by law. Electronically signed by: Nic Gray M.D. 10/16/2022 10:42 AM PG Care Time/CCT Total # of Minutes Spent Total Time Spent with Patient: Total time spent is greater than 50% in coordination of care (as documented) at patient's floor/unit and/or counseling patient: Coding Level of Care Code 61328 SUB INP/OBS CARE 2/35MIN Diagnoses Acute cholecystitis K81.0 Hypertension I10 Hypokalemia E87.6 GERD (gastroesophageal reflux disease) K21.9
[2022-10-17] MEDS: POTASSIUM CHLORIDE 10 MEQ TABCR PO SCH (08:46)
[2022-10-17] MEDS ORDERED: PANTOprazole 40 MG TAB PO SCH (09:00)
[2022-10-17] MEDS ORDERED: TRIAMTERENE/HCTZ 37.5/25MG CAP PO SCH (09:00)
[2022-10-17] MEDS ORDERED: AMOXICILLIN/CLAVULANATE 875 MG TAB PO ONE (09:33)
[2022-10-17 09:37] LABS: Basophils # (auto) 0.04 K/uL (0.00-0.20); Basophils % (auto) 0.4 %; Eosinophils # (auto) 0.02 K/uL (0.00-0.50); Eosinophils % (auto) 0.2 %; Hematocrit (blood only) 37.9 % (37.0-47.0); Hemoglobin 13.2 g/dl (12.0-16.0); Immature Granulocytes # (auto) 0.05 K/uL (0.01-0.20); Immature Granulocytes % (auto) 0.5 %; Lymphocytes # (auto) 1.02 K/uL (1.20-3.40); Lymphocytes % (auto) 10.5 %; Mean Corpuscular Hemoglobin 29.9 pg (25.0-34.0); Mean Corpuscular Hgb Conc 34.8 g/dL (32.0-36.0); Mean Corpuscular Volume 85.9 fL (80.0-100.0); Mean Platelet Volume 8.4 fL (9.4-12.4); Monocytes % (auto) 4.1 %; Neutrophils # (auto) 8.15 K/uL (1.40-6.50); Neutrophils % (auto) 84.3 %; Platelet Count 228 K/uL (130-400); RDW Standard Deviation 40.4 fL (36.4-46.3); Red Blood Count 4.41 M/uL (4.20-5.40); White Blood Count 9.68 K/ul (4.8-10.8)
[2022-10-17 10:04] LABS: Albumin Globulin Ratio 1.9 (0.9-2); Albumin Level 3.9 gm/dl (3.4-5.0); Bilirubin,Total 0.7 mg/dl (0.2-1.0); Calcium 8.5 mg/dl (8.6-10.3); Est GFR (African American) 87.1 ml/min; Est GFR (Non-African American) 75.2 ml/min; Globulin 2.1 gm/dl (2.5-4.0); Potassium 3.6 mmol/L (3.5-5.1)
--- NOTE | 2022-10-20 08:04 | Discharge Summary ---
Date of Service October 20, 2022 Admission HPI Per Admitting Provider This is a 67yF with a PMH of GERD, HTN who presents to the [facility] ED on 10/16/22 with complaints of abdominal pain, nausea/vomiting that started this AM. She has been camping at the [employer] this week. 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 Yesterday she felt fine and ate eggs/doyle for breakfast, scotts pulled pork sandwich for lunch, and hamburger and mozzarella cheese cubes for dinner. She went to sleep, but then woke up this AM around 4am with severe pain in her upper abdomen radiating into her back, rating it an 8-9/10 in severity. This was associated with multiple bouts of nausea/vomiting. She called her to come pick her up, however the pain became so unbearable that she ended up calling 911 and coming in by EMS. In the ER she underwent a CT a/p that revealed a mildly distended gallbladder with mild pericholecystic inflammatory change and a few punctate gallstones. Possible punctate stone at the cystic duct as described above. These findings are highly suspicious for an acute cholecystitis. The patient denies any fevers/chills, CP/SOB, or changes in bowel habits. + sweats and reflux. No prior abdominal surgical history. History of vaginal hysterectomy. 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 Principal Diagnosis Acute cholecystitis Status post laparoscopic cholecystectomy Discharge Exam Patient awake and alert in no distress Tolerating her diet Tolerating pain control with p.o. pain meds Breathing comfortably Regular heart rate Abdomen is soft with dry surgical incisions Extremities are warm and dry Discharge Data Allergies Allergy/AdvReac Type Severity Reaction Status Date / Time No Known Allergies Allergy Unverified 10/16/22 09:29 Consultations 10/16/22 12:11 Consult General Surgery Stat 10/16/22 15:58 Consult Hospitalist Routine Procedures Performed Operation Date: 10/16/22 13:00 Actual Procedures p Laparoscopic Cholecystectomy(Not Applicable) - Obed Mcgowan MD, FACS Ordered Studies 10/16/22 08:44 CT abd pelvis IV con only Stat Hospital Course (1) Hx laparoscopic cholecystectomy: Patient presented to the emergency room with severe abdominal pain She was diagnosed with acute cholecystitis She was taken to the operating room from the emergency room where she underwent laparoscopic cholecystectomy showing severe acute cholecystitis She was then sent to the regular nursing floor and kept overnight She did very well overnight was felt stable for discharge home the next morning She is to be seen in the surgical clinic within 1 to 2 weeks Total Time Total Time Spent Total Time Spent (In Minutes): 20 Discharge Plan Discharge Items Patient Disposition: Home - Self-Care Reason For Visit: ABDOMINAL PAIN Discharge Diagnosis: laparoscopic cholecystectomy Condition on Discharge: Fair Activity: Per Instructions section Activity Comment: light activity for 3-4 weeks Lifting: No more than 10 pounds Bathing Comment: may shower; no soaking in tubs/pools x 2 weeks Sexual Activity: When tolerated Exercise/Sports: Wait until after follow-up appointment Exercise Comment: wait 3-4 weeks Driving/Machine Use: no driving while taking narcotics for pain Non-emergency contact: Surgeon Call non-emergency contact if: you have any medication questions, your symptoms worsen, you have a fever, your temperature is above 101.5, your wound has increased redness, your wound has increased drainage and your wound pain has increased Follow-up/Referrals: Obed Mcgowan MD, FACS [Physician] - 10/29/22 9:00 am Akhil Girard MD [Primary Care Provider] - Diet: Regular Addtl Attending Provider Instructions: SPECIAL CARE INSTRUCTIONS: * Cover incisions and change daily for comfort/drainage. May leave uncovered with Dermabond * May use ibuprofen for pain as tolerated. * Expect some swelling and bruising. Call your doctor if: * Temperature above 101 degrees * Pain not relieved by pain medicine ordered * There is increased drainage or redness from any incision * You have any unanswered questions or concerns [phone]. FOLLOW UP VISIT: If not already scheduled, please call the office for a follow-up visit. For 2 weeksno sutures to remove OFFICE PHONE NUMBER: Dr. Mcgowan Office Pending Studies at Discharge: Yes Studies:: surgical pathology Stand-Alone Forms: My [facility], Pain - Opioid Pain Management, Smoking Cessation Medications and DC Order Prescriptions: New amoxicillin-pot clavulanate 875-125 mg tablet 1 tab PO BID Qty: 10 0RF fluconazole [Diflucan] 150 mg tablet 150 mg PO DAILY Qty: 2 0RF Rx Instructions: administer on day 1 of therapy hydrocodone-acetaminophen 5-325 mg tablet 1 tab PO Q4H PRN (Reason: pain) Qty: 10 0RF Rx Instructions: For severe pain you may take 2 tablets but not more than 6 tablets in a single day I saw the patient today and she had recent surgery We will see her again in 2 weeks in the office Continued multivitamin Tablet 1 tab PO DAILY triamterene-hydrochlorothiazid 37.5-25 mg capsule 1 cap PO DAILY omeprazole 20 mg capsule,delayed release(DR/EC) 20 mg PO DAILY omega-3 fatty acids Capsule 1,000 mg PO DAILY potassium chloride 10 mEq tablet,ER particles/crystals 10 meq PO BID cranberry 1 tab PO DAILY Discharge Orders: Discharge Order (Routine); Ordered 10/17/22 Ordered By: Obed Hdez/Other Patient Handouts: DVT Post Op Prevention Admission Data Admit Date/Time: 10/16/22 14:19 Attending Provider: Obed Mcgowan Admit Provider: Obed Mcgowan Primary Care Provider: Akhil Girard Other Providers: Obed Mcgowan ; Kentrell Thakkar ; Ellie Choi ; Cyril Patel ; Obed Thompson ; Pablito Varela ; Cuong Anand ; Jose G Zamora ; Ashley Mccarthy ; Raiza Flores ; Jovani Mosqueda ; Dorcas Phillips ; Toni Garcia ; Alexandra Banks ; Loc Abarca ; Charles Gee ; Ellie Gray ; Raissa Willingham ; Adonay Xavier ; Cyril Eastman ; Nic Jaramillo ; Dena Boss ; Darwin Holliday ; Lamar Mccarthy ; Jorje Oneill ; Casimiro Chapman ; Naomi Bustos ; Jayjay Leal ; Jemal Briseno ; Medina Soares ; Chase Reilly ; Obed Do ; Pablito Hodges Other Interventions: Discharge Summary Assessment (RN) Last Done: 10/17/22 10:12 Coding Level of Care Code 78557 IN/OBS DISCH 30 MIN/LESS Diagnoses Hx laparoscopic cholecystectomy Z90.49
--- NOTE | 2022-10-21 12:13 | Operative Report ---
PG Post Operative Report Pre & Post Diagnosis Operation Date: 10/16/22 13:00 Pre-Op Diagnosis: ABDOMINAL PAIN Post-Op Diagnosis: ABDOMINAL PAIN, acute necrotizing cholecystitis, adhesions I identified the patient and participated in the time-out.: Yes Procedure Operation Date: 10/16/22 13:00 Actual Procedures p Laparoscopic Cholecystectomy(Not Applicable) - Obed Mcgowan MD, FACS Lysis of adhesions Surgeon Obed Mcgowan MD, FACS [employer]ocomotive [employer] robert [email or web address][employer]brennen Estimated Blood Loss 10 Findings Consistent with Post-Op Diagnosis Specimens Gallbladder Description of Procedure Patient brought in the operating room placed operating table in supine position Pneumatic stockings orogastric tube were placed Her abdomen was prepped and draped in usual fashion Half percent plain Marcaine was used to anesthetize all incisions Incision was made above the umbilicus carried dissection down to the fascia placing a varies needle producing pneumoperitoneum 11 mm port placed at this level and then under visualization three 5 mm ports placed 1 cephalad and 2 laterally Gallbladder was grasped and retracted there were adhesions to the gallbladder consistent with chronic disease patient had acute necrotizing cholecystitis Dissection was carried out the teetee hepatis identify the cystic duct and cystic artery-these were clipped and transected The gallbladder dissected away from the liver bed showing severe inflammation of the posterior wall After appropriate hemostasis the gallbladder was placed into an Endobag and removed through the umbilical site All ports removed umbilical fascia closed using 0 Vicryl suture Skin reapproximated using subcuticular 4-0 Monocryl and Dermabond My assistant to the director help with prepping draping removal of the gallbladder and closure of the wounds Patient transferred recovery room in stable condition I attest to the content of the Intraoperative Record and any orders documented therein. Any exceptions are noted below.
== END 2022-10-17 11:06 | disposition home or self-care (01) | DRG 419 ==
LOC: ED 07:40 → 3N 13:05 → ASU 13:05 → OBSVTOIN 14:19 → PACUINP 14:19 → INTOOBSV 14:19 → 3N 16:32
DX: E87.6 Hypokalemia; K82.8 Other specified diseases of gallbladder; K29.70 Gastritis, unspecified, without bleeding; I10 Essential (primary) hypertension; K80.12 Calculus of gallbladder with acute and chronic cholecystitis without obstruction; T50.2X5A Adverse effect of carbonic-anhydrase inhibitors, benzothiadiazides and other diuretics, initial encounter; Z79.899 Other long term (current) drug therapy; K21.9 Gastro-esophageal reflux disease without esophagitis; K82.A1 Gangrene of gallbladder in cholecystitis